=== PATIENT | female | born 1955 | race Caucasian/White ===

== ENCOUNTER 2020-07-29 08:20 | Outpatient (REF) | payer MEDICARE, SELFPAY ==
[2020-07-29 11:18] LABS: MANUAL DIFF FLAG NO
[2020-07-29 11:30] LABS: Basophils Percent Auto 0.4 % (0-2); Eosinophils Absolute Auto 0.1 X10*3/uL (0.0-0.4); Eosinophils Percent Auto 1.9 % (0-4); Hematocrit 45.3 % (37-47); Hemoglobin 14.8 g/dl (12.0-16.0); Imm Gran Abs Auto 0.01 X10*3/uL (0.00-0.03); Imm Gran Pct Auto 0.1 % (0.0-0.4); Lymphocytes Percent Auto 30.3 % (20-40); Mean Corpuscular HGB Conc 32.7 g/dl (31.0-35.0); Mean Corpuscular Hemoglobin 29.8 pg (27.0-33.0); Mean Corpuscular Volume 91.3 fL (80-98); Mean Platelet Volume 10.6 fL (9.4-12.3); Monocytes Absolute Auto 0.5 X10*3/uL (0.1-1.2); Monocytes Percent Auto 7.7 % (2-11); Neutrophils Percent Auto 59.6 % (45-73); Platelet Count 170 X10*3/uL (160-400); Red Blood Count 4.96 X10*6/uL (4.20-5.50); Red Cell Distribution Width 12.7 % (11.0-16.0); White Blood Count 6.7 X10*3/uL (4.8-10.8)
[2020-07-29 12:38] LABS: Thyroid Stimulating Hormone 0.22 mIU/mL (0.32-4.0)
[2020-07-29 12:41] LABS: Alanine Aminotransferase 25 U/L (0-31); Albumin Level 4.5 g/dL (3.5-5.0); Alkaline Phosphatase 69 U/L (39-117); Anion Gap 14 (12-20); Aspartate Amino Transferase 15 U/L (5-31); Bilirubin Total 0.6 mg/dL (0.0-1.0); Blood Urea Nitrogen 19 mg/dL (9-16); Calcium 9.4 mg/dL (8.4-10.2); Carbon Dioxide 29 mmol/L (22-29); Chloride 103 mmol/L (96-108); Cholesterol 169 mg/dL; Estimated Glomerular Filt Rate > 60; Glucose Fasting 88 mg/dL (60-99); HDL Cholesterol 42 mg/dL; LDL Cholesterol Calculated 102 mg/dl; Potassium 4.4 mmol/l (3.3-5.1); Sodium 142 mmol/L (135-145); Total Protein 7.2 g/dL (6.5-8.0); Triglycerides 126 mg/dL
== END 2020-07-29 08:21 | disposition home or self-care (01) ==
LOC: HO.HMGCLDS 08:20
PROVIDERS: PCP Internal Medicine; Visit Provider Internal Medicine
DX: E03.9 Hypothyroidism, unspecified (principal); E78.00 Pure hypercholesterolemia, unspecified; I10 Essential (primary) hypertension
CPT/HCPCS: 36415; 80053; 80061; 84443; 85025

== ENCOUNTER 2021-01-29 14:06 | Outpatient (REF) | payer MEDICARE, SELFPAY ==
[2021-01-29 17:12] LABS: Thyroid Stimulating Hormone 0.03 uIU/mL (0.32-4.0)
== END 2021-01-29 14:07 | disposition home or self-care (01) ==
LOC: HO.HMGCLDS 14:06
PROVIDERS: PCP Internal Medicine; Visit Provider Internal Medicine
DX: E03.9 Hypothyroidism, unspecified (principal)
CPT/HCPCS: 36415; 84443

== ENCOUNTER 2021-02-12 10:22 | Outpatient (REF) | payer MEDICARE, SELFPAY ==
--- NOTE | ~2021-02-12 | XR_ITS ---
EXAMINATION: XR TOES, LEFT CLINICAL INFORMATION: Pain in great toe. COMPARISON: None TECHNIQUE: 3 views of the left toes were obtained. FINDINGS: FIRST TOE: Mild hallux valgus and mild 1st MTP arthritis. Mild 1st IP joint spurring. No acute fracture or dislocation. Bony spurring at the 2nd MTP joint. Probable mild 2nd IP joint arthritis. No acute findings otherwise seen. XR/XR toe LT min 2V IMPRESSION: Mild hallux valgus and 1st MTP joint arthritis. Additional findings as detailed above.
[2021-02-12 12:04] LABS: C Reactive Protein 0.54 mg/dL (< or = 0.50); Cholesterol 163 mg/dL; HDL Cholesterol 36 mg/dL; LDL Cholesterol Calculated 88 mg/dl; Triglycerides 195 mg/dL; Uric Acid 4.9 mg/dL (2.4-5.7)
== END 2021-02-12 10:23 | disposition home or self-care (01) ==
LOC: HO.HMGCX 10:22
PROVIDERS: PCP Internal Medicine; Visit Provider Internal Medicine
DX: Z00.00 Encounter for general adult medical examination without abnormal findings (principal); M79.675 Pain in left toe(s); I10 Essential (primary) hypertension; E78.00 Pure hypercholesterolemia, unspecified; E03.9 Hypothyroidism, unspecified
CPT/HCPCS: 36415; 73660; 80061; 84550; 86140

== ENCOUNTER 2021-06-14 07:24 | Outpatient (REF) | payer MEDICARE, SELFPAY ==
[2021-06-14 11:03] LABS: MANUAL DIFF FLAG NO
[2021-06-14 11:16] LABS: Basophils Percent Auto 0.4 % (0-2); Eosinophils Absolute Auto 0.1 X10*3/uL (0.0-0.4); Eosinophils Percent Auto 1.1 % (0-4); Hematocrit 40.9 % (37-47); Hemoglobin 13.4 g/dl (12.0-16.0); Imm Gran Abs Auto 0.01 X10*3/uL (0.00-0.03); Imm Gran Pct Auto 0.2 % (0.0-0.4); Lymphocytes Absolute Auto 1.4 X10*3/uL (1.2-4.9); Lymphocytes Percent Auto 26.1 % (20-40); Mean Corpuscular HGB Conc 32.8 g/dl (31.0-35.0); Mean Corpuscular Volume 91.7 fL (80-98); Mean Platelet Volume 10.6 fL (9.4-12.3); Monocytes Absolute Auto 0.6 X10*3/uL (0.1-1.2); Monocytes Percent Auto 10.8 % (2-11); Neutrophils Absolute Auto 3.3 X10*3/uL (2.0-8.3); Neutrophils Percent Auto 61.4 % (45-73); Platelet Count 179 X10*3/uL (160-400); Red Blood Count 4.46 X10*6/uL (4.20-5.50); Red Cell Distribution Width 12.7 % (11.0-16.0); White Blood Count 5.4 X10*3/uL (4.8-10.8)
[2021-06-14 11:39] LABS: Alanine Aminotransferase 18 U/L (0-31); Albumin Level 4.3 g/dL (3.5-5.0); Alkaline Phosphatase 60 U/L (39-117); Anion Gap 15 (12-20); Aspartate Amino Transferase 14 U/L (5-31); Bilirubin Total 0.6 mg/dL (0.0-1.0); Blood Urea Nitrogen 16 mg/dL (9-16); Calcium 9.4 mg/dL (8.4-10.2); Carbon Dioxide 27 mmol/L (22-29); Chloride 105 mmol/L (96-108); Cholesterol 151 mg/dL; Estimated Glomerular Filt Rate > 60; Glucose Fasting 88 mg/dL (60-99); HDL Cholesterol 40 mg/dL; LDL Cholesterol Calculated 98 mg/dl; Potassium 4.7 mmol/L (3.3-5.1); Sodium 142 mmol/L (135-145); Total Protein 6.8 g/dL (6.5-8.0); Triglycerides 65 mg/dL
[2021-06-14 11:57] LABS: Erythrocyte Sedimentation Rate 12 MM/HR (0-20)
[2021-06-14 12:00] LABS: Thyroid Stimulating Hormone 0.26 uIU/mL (0.32-4.0); Vitamin D 25-OH Total 38.8 ng/mL (>30)
[2021-06-14 12:21] LABS: Rheumatoid Factor < 15.0 IU/mL (<15.0)
[2021-06-15 09:37] LABS: Lyme Abs Screen <0.90 index
== END 2021-06-14 07:25 | disposition home or self-care (01) ==
LOC: HO.HMGCLDS 07:24
PROVIDERS: PCP Internal Medicine; Visit Provider Internal Medicine
DX: I10 Essential (primary) hypertension (principal); E78.00 Pure hypercholesterolemia, unspecified; E03.9 Hypothyroidism, unspecified; M25.50 Pain in unspecified joint
CPT/HCPCS: 36415; 80053; 80061; 82306; 84443; 85025; 85652; 86140; 86431; 86617; 86618

== ENCOUNTER 2023-12-12 09:56 | Outpatient (REF) | payer MEDICARE, SELFPAY ==
--- NOTE | ~2023-12-12 | XR_ITS ---
EXAMINATION: XR CHEST CLINICAL INFORMATION: Bronchitis COMPARISON: 10/28/2016 TECHNIQUE: 2 views of the chest were obtained. FINDINGS: No significant abnormality is noted involving the heart, lungs, mediastinum, bony thorax or soft tissues. XR/XR chest 2V IMPRESSION: Unremarkable examination.
[2023-12-12 13:20] LABS: MANUAL DIFF FLAG NO
[2023-12-12 13:37] LABS: Basophils Percent Auto 0.6 % (0-2); Eosinophils Absolute Auto 0.1 X10*3/uL (0.0-0.4); Hematocrit 41.9 % (37.0-47.0); Hemoglobin 14.7 g/dl (12.0-16.0); Imm Gran Abs Auto 0.02 X10*3/uL (0.00-0.03); Imm Gran Pct Auto 0.3 % (0.0-0.4); Lymphocytes Absolute Auto 1.8 X10*3/uL (1.2-4.9); Mean Corpuscular HGB Conc 35.1 g/dl (31.0-35.0); Mean Corpuscular Hemoglobin 31.7 pg (27.0-33.0); Mean Corpuscular Volume 90.3 fL (80.0-98.0); Mean Platelet Volume 10.5 fL (9.4-12.3); Monocytes Absolute Auto 0.7 X10*3/uL (0.1-1.2); Neutrophils Absolute Auto 3.9 x10*3/uL (2.0-8.3); Neutrophils Percent Auto 60.1 % (45-73); Platelet Count 311 X10*3/uL (160-400); Red Blood Count 4.64 X10*6/uL (4.20-5.50); Red Cell Distribution Width 12.5 % (11.0-16.0); White Blood Count 6.5 X10*3/uL (4.8-10.8)
[2023-12-12 13:40] LABS: Alanine Aminotransferase 23 U/L (0-31); Albumin Level 4.2 g/dL (3.5-5.0); Alkaline Phosphatase 61 U/L (39-117); Anion Gap 10 (12-20); Aspartate Amino Transferase 18 U/L (5-31); Bilirubin Total 0.4 mg/dL (0.0-1.0); Blood Urea Nitrogen 15 mg/dL (9-16); C Reactive Protein 0.27 mg/dL (< or = 0.50); Calcium 9.8 mg/dL (8.4-10.2); Carbon Dioxide 28 mmol/L (22-29); Chloride 105 mmol/L (96-108); Estimated Glomerular Filt Rate > 60; Glucose Random 85 mg/dL (60-115); Potassium 4.1 mmol/L (3.3-5.1); Sodium 139 mmol/L (135-145); Total Protein 7.1 g/dL (6.5-8.0)
[2023-12-12 14:15] LABS: Erythrocyte Sedimentation Rate 14 MM/HR (0-20)
== END 2023-12-12 09:57 | disposition home or self-care (01) ==
LOC: HO.HMGCX 09:56
PROVIDERS: PCP Internal Medicine; Visit Provider Internal Medicine
DX: J40 Bronchitis, not specified as acute or chronic (principal)
CPT/HCPCS: 36415; 71046; 80053; 85025; 85652; 86140

== ENCOUNTER 2024-03-13 10:53 | Outpatient (REF) | payer MEDICARE, SELFPAY ==
[2024-03-13 14:19] LABS: Free T4 (Free Thyroxine) 0.99 ng/dL (0.71-1.85); Thyroid Stimulating Hormone 2.93 uIU/mL (0.32-4.0); Vitamin D 25-OH Total 43.5 ng/mL (>30)
[2024-03-15 19:04] LABS: Triiodothyronine T3 Free 2.6 pg/mL (2.3-4.2)
== END 2024-03-13 10:54 | disposition home or self-care (01) ==
LOC: HO.HMGCLDS 10:53
PROVIDERS: PCP Internal Medicine; Visit Provider Internal Medicine
DX: M85.88 Other specified disorders of bone density and structure, other site (principal); E03.9 Hypothyroidism, unspecified
CPT/HCPCS: 36415; 82306; 84439; 84443; 84481

== ENCOUNTER 2025-01-21 13:31 | Outpatient (AMB) | payer MEDICARE, SELFPAY ==
--- NOTE | 2025-01-21 13:33 | A.OFFPC_ITS ---
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 Accompanied by: Self / Same As Patient Allergies No Known Allergies Allergy (Verified 01/21/25 13:33) Tobacco use date assessed: 01/21/25 Fall risk assessment: No Falls in past year Last assessed Fall Risk: 01/21/25 Dental Screening Dental Screen Date: 01/21/25 Did you have a dental visit in the last 12 months?: Yes Did you have a dental problem in the last 6 months where you did not have access to dental care?: No Was dental information given to patient?: Patient has dentist [facility] Medical History (Updated 01/21/25 @ 14:18 by Keith Vanegas MD) Osteoarthritis of right shoulder Hypothyroidism Family History (Updated 01/21/25 @ 13:44 by AG Knight) Father Heart problem Mother Heart problem Brother Diabetes Heart problem Social History (Updated 01/21/25 @ 13:44 by AG Knight) Housing: House Alcohol intake: current Alcohol intake frequency: holidays/special occasions only Patient Tobacco Use Status: Never used Tobacco service: No Current occupational status: retired Cognitive needs: No Hearing needs: No Vision needs: Yes (rx glasses) Questionnaire PHQ-9 Over the last 2 weeks, how often have you been bothered by any of the following problems? 1. Little interest or pleasure in doing things: not at all 2. Feeling down, depressed, or hopeless: not at all 3. Trouble falling or staying asleep, or sleeping too much: not at all 4. Feeling tired or having little energy: not at all 5. Poor appetite or overeating: not at all 6. Feeling bad about yourself - or that you are a failure or have let yourself or your family down: not at all 7. Trouble concentrating on things, such as reading the newspaper or watching television: not at all 8. Moving or speaking so slowly that other people could have noticed. Or the opposite - being so fidgety or restless that you have been moving around a lot more than usual: not at all 9. Thoughts that you would be better off or of hurting yourself in some way: not at all Total score: 0 Source: Developed by Drs. Bert Choi, Alejandra Ellis, Nirav Bobby and colleagues, with an educational maksim from [employer]. Thrive Questionnaire Date Thrive assessed: 01/21/25 I am a: Patient What is your living situation today?: I have a steady place to live Within the past 12 months, did the food you bought not last and you didn't have the money to get more?: Never true Within the past 12 months, did you worry whether your food would run out before you got money to buy more?: Never true Do you have trouble paying for medicines?: No Do you have trouble getting transportation to medical appointments?: No Do you have trouble paying your heating and electricity bill?: No Do you have trouble taking care of your child, family member or friend?: No Do you have trouble with day-to-day activities such as bathing, preparing meals, shopping, managing finances, etc.?: No Are you currently unemployed and looking for a job?: No Are you interested in more education?: No Please select the resources that you would like help with: None THRIVE Score: 0 AUDIT C Alcohol Use Questionnaire (AUDIT-C) 1. How often do you have a drink containing alcohol?: Monthly or less 2. How many drinks containing alcohol do you have on a typical day when you are drinking?: 1 or 2 3. How often do you have six or more drinks on one occasion?: Never Total Score: 1 YORDY-7 AMB Questionnaire YORDY-7 Date YORDY - 7 assessed: 01/21/25 Feeling nervous, anxious, or on edge: 0 = Not at all Not being able to stop or control worryin = Not at all Worrying too much about different things: 0 = Not at all Trouble relaxin = Not at all Being so restless that it is hard to sit still: 0 = Not at all Becoming easily annoyed or irritable: 0 = Not at all Feeling afraid as if something awful might happen: 0 = Not at all Total YORDY-7 score (0-4 normal; 5-9 mild; 10-14 moderate; 15-21 severe): 0 Source: Developed by Drs. Bert Choi, Alejandra Ellis, Nirav Bobby and colleagues, with an educational maksim from [employer]. Physical exam (Primary Care) Vital Signs: Last Vital Signs Temp 97.9 F 01/21/25 13:35 Pulse 72 01/21/25 13:35 Resp 14 01/21/25 13:35 BP 138/80 01/21/25 13:35 Pulse Ox 97 01/21/25 13:35 Oxygen Delivery Method Room Air 01/21/25 13:35 BMI result Body Mass Index 27.3 Tobacco/Smoking Status: Tobacco use Status Tobacco use date assessed 01/21/25 01/21/25 13:44 Patient Tobacco Use Status Never used Tobacco 01/21/25 13:44 PHQ-9: PHQ-9 Score PHQ-9: Total score 0 01/21/25 13:44 Thrive Assessment: Date of Thrive Assessment Date Thrive assessed 01/21/25 01/21/25 13:44 Coding Level of Care Code New Pt Level 4 (01263) Complex EM visit Add On G2211 Diagnoses Hypothyroidism E03.9 Osteoarthritis of right shoulder M19.011 Assessment & Plan Assessment & Plan (1) Hypothyroidism: Code(s): E03.9 - Hypothyroidism, unspecified Category: Medical Plan: BW ordered, will call with results of blood work (2) Osteoarthritis of right shoulder: Code(s): M19.011 - Primary osteoarthritis, right shoulder Category: Medical Plan: NSAIDS called in. If sx do not improve, will consider imaging. Plan History of Present Illness The patient is a 69-year-old female presenting with pain management concerns for her right shoulder and left hip. She has experienced persistent right shoulder pain but has opted against treatment interventions thus far. Her left hip pain has also been troubling her recently. Pain severity increases at night, potentially related to muscle relaxation after physical activity. Previous employment involved physical labor, which she may attribute to her musculoskeletal complaints. There are no reports of acute exacerbations or previously attempted treatments prior to this visit, aside from the newly proposed anti-inflammatory regimen. 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 - , as interactions with a spouse are noted. - Planning a trip to [facility]. Review of Systems - Musculoskeletal: Reports pain in right shoulder and left hip, with increased severity at night. Physical Exam General: Cooperative and healthy appearing Nutritional Appearance: Well nourished Orientation/consciousness: Patient oriented x3 Limitations: No limitations Head: Normal to inspection General: Appearance normal, both eyes and all related structures Neck: Normal visual inspection Chest: Normal palpation of entire chest wall Respiratory: Normal respiratory effort Neurology: Patient oriented x3 Results Plan I recommended beginning treatment with meloxicam, an anti-inflammatory, for pain in her shoulder and hip. She is to take it daily over a two-week period and take into account copayment benefits for any further necessary labs at [facility]. Follow-up monitoring of treatment efficacy and any subsequent care needs will be essential. Patient was informed and verbally consented to the use of an ambient scribe for clinic note documentation during this visit. Discussion Notes Patient Instructions - Begin taking meloxicam once daily for two weeks. - Monitor pain levels and report any adverse effects or lack of improvement. - Plan to have any needed lab work done at [facility] to avoid copayments. - Consider scheduling follow-up to evaluate the response to treatment if necessary. - Contact medical services if experiencing any severe side effects or concerns. Orders: Orders Complete Blood Count no Diff Today E03.9 - Hypothyroidism, unspecified Lipid Panel Today E03.9 - Hypothyroidism, unspecified Thyroid Stimulating Hormone Today E03.9 - Hypothyroidism, unspecified UA and rflx microscopic Today E03.9 - Hypothyroidism, unspecified Basic Metabolic Panel Today E03.9 - Hypothyroidism, unspecified Liver Panel Today E03.9 - Hypothyroidism, unspecified Medications: New meloxicam 15 mg PO DAILY 14 tabs 0RF
[2025-01-21 13:35] VITALS: BP 138/80; PULSE 72; RESP 14; TEMP 36.6; O2SAT 97; BMI 27.3
--- OUTSIDE RECORDS SUMMARY | 2025-01-21 16:28 | XMS_ITS | Data Portability ---
Author Organization [facility], [facility] Address [address] [place] [address] Care Team Providers Care Department Of Sociology Chair Name Role Phone KULWANT FELICIANO Primary Care Provider Assessment Encounter Date Assessment Date Assessment LastModified by Organization Details LastModified Time 08/28/2024 08/28/2024 A: Improved ying to overall tx with slight improvement in ROM with less empty end feel and guarding. Updated HEP given with TB. P: Cont POC per pt ying. [email or web address] Not available 08/29/2024 10:23:07 09/02/2024 09/02/2024 A: Pt had significant decrease in overall ying to tx today with constant pain in both shoulders. P: Cont POC per pt ying. [email or web address] Not available 09/03/2024 11:02:43 09/04/2024 09/04/2024 A: Pt cont to struggle with pain in Bi shoulder with ROM and strengthening exs. Pt decided to put hold on PT and follow up with MD for further recommendation of POC. P: Pt D/C today. MD follow up 09/24/24. [email or web address] Not available 09/04/2024 11:19:11 09/24/2024 09/24/2024 Chief Complaint: Bilateral shoulder pain, right greater than left HPI: The patient, a 68-year-old female, presents with bilateral shoulder pain that has been persistent for approximately one year, with significant exacerbation at night. The pain is localized to the sides of the shoulders and occasionally radiates downwards. She reports no recent trauma but has a history of thoracic outlet syndrome surgery on the left side, including first rib resection and nerve transposition. She did well after that surgery. The patient enjoys physical activities such as gardening and lifting heavy objects, which may contribute to her symptoms. She has not tried any medications, therapy, or injections for her shoulder pain. Additionally, she experiences muscle spasms in her back, which she manages with muscle relaxers and a TENS unit. I previously evaluated her on 07/30/2024. I performed bilateral shoulder subacromial steroid injections, which did provide some improvement in symptoms, however, she continues to have pain particularly to the right shoulder. She comes in today for reevaluation. I reviewed previous X-rays ordered, obtained and reviewed at [facility] from July 2024. These images included a Grashey, scapular outlet and axillary views of the bilateral shoulders. No acute fractures or dislocations. Relatively normal glenohumeral joint space with mild joint space narrowing to the left shoulder along with small inferior humeral head osteophyte. Normal acromial humeral distance. Mild acromial clavicular joint arthrosis bilaterally. Type II acromion bilaterally. No os acromiale. Past medical, surgical, family and social history; Medications, Allergies and 12-point review of systems have been reviewed, updated and charted. Physical Examination: Height and weight as noted in chart. Constitutional: Patient pleasant, well appearing and in NAD. Mental status: Patient is alert and oriented to person, place and time. No short-term memory deficits. Psychiatric: Mood and affect are appropriate. Head: Normocephalic and atraumatic. Exterior inspection of the ears and nose was unremarkable. Hearing grossly intact. Eyes: Sclera are not blue. almond cutting machine tender II-XII are grossly intact. Full extraocular motion. Neck: Supple with age-appropriate ROM. No tracheal deviation. No obvious JVD. Respiratory: Non-labored breathing. Symmetric excursion. No audible wheezing or crackles. Skin: No rashes, lesions, wounds to the upper extremities. Normal turgor and coloration. Musculoskeletal: On examination of the bilateral shoulders, there are no effusions, erythema or ecchymosis. Active shoulder elevation 165? ? ? bilaterally. External rotation to 50? ? ? bilaterally. Internal rotation to the thoracolumbar junction. 4+/5 strength on rotator cuff testing. Positive impingement signs of both shoulders. Mild acromioclavicular joint and biceps tenderness. Impression and Plan: 68-year-old female with a greater than one-year history of bilateral shoulder pain and overall history and exam consistent with bilateral shoulder subacromial impingement/bursiti s and probable underlying rotator cuff tear pathology. I did discuss with her the possibility of partial thickness rotator cuff tear pathology, which is very common in her age group. Despite this, she has very reasonable strength on rotator cuff testing. Given the chronicity of her symptoms and failure of conservative treatment including rest, the modification, oral anti-inflammatories and cortisone injection treatment, I am referring her for an MRI of the more symptomatic right shoulder to rule out rotator cuff tear and associated pathology. I stressed the importance of activity modification with avoidance of exacerbating activities including heavy lifting overhead or lifting heavy away from the body. I discussed good lifting mechanics. I also recommended a low-dose oral anti-inflammatory such as ibuprofen [id number] and/or Tylenol as needed. I will plan to see her back in 3 weeks for reevaluation and MRI review. All questions and concerns were addressed. Today's visit involved examining the patient, reviewing the history, reviewing the radiographic studies, counseling the patient regarding treatment options, and the administrative tasks including placing orders, preparing patient information and home handouts and preparing the visit note. This note was [facility] with [facility] recognition nurse transition dictation software. Please excuse any errors that may have been overlooked during review of this note. Sometimes, these errors may affect the content or meaning of a given sentence. Please call for corrections. Not available 09/24/2024 16:37:36 10/24/2024 10/24/2024 Chief Complaint: Bilateral shoulder pain, right greater than left HPI: The patient, a 68-year-old female, presents with bilateral shoulder pain that has been persistent for approximately one year, with significant exacerbation at night. The pain is localized to the sides of the shoulders and occasionally radiates downwards. She reports no recent trauma but has a history of thoracic outlet syndrome surgery on the left side, including first rib resection and nerve transposition. She did well after that surgery. The patient enjoys physical activities such as gardening and lifting heavy objects, which may contribute to her symptoms. She has not tried any medications, therapy, or injections for her shoulder pain. Additionally, she experiences muscle spasms in her back, which she manages with muscle relaxers and a TENS unit. I previously evaluated her on 07/30/2024. I performed bilateral shoulder subacromial steroid injections, which did provide some improvement in symptoms, however, she continues to have pain particularly to the right shoulder. Overall, symptoms are not improved particularly if she keeps her arms posterior body. I did most recently see her on 09/24/2024 and referred her for an MRI of the more symptomatic right shoulder. She comes in today for reevaluation and MRI review. I independently reviewed the outside MRI of the right shoulder dated 10/07/2024 from [facility]. There is partial-thickness intrasubstance tearing of the distal supraspinatus with downsloping impinging acromial spur. No significant acromioclavicular joint arthrosis. Degenerative tearing of the superior labrum noted. Anterior and posterior labrum appear largely intact with degenerative change appreciated. Generalized chondral thinning to the glenohumeral joint. Moderate joint effusion noted. Subscapularis intact. Infraspinatus and teres minor intact. Biceps tendon intact with notable hermann-bicipital fluid within the biceps sheath in conjunction with effusion. I reviewed previous X-rays ordered, obtained and reviewed at [facility] from July 2024. These images included a Grashey, scapular outlet and axillary views of the bilateral shoulders. No acute fractures or dislocations. Relatively normal glenohumeral joint space with mild joint space narrowing to the left shoulder along with small inferior humeral head osteophyte. Normal acromial humeral distance. Mild acromial clavicular joint arthrosis bilaterally. Type II acromion bilaterally. No os acromiale. Past medical, surgical, family and social history; Medications, Allergies and 12-point review of systems have been reviewed, updated and charted. Physical Examination: Height and weight as noted in chart. Constitutional: Patient pleasant, well appearing and in NAD. Mental status: Patient is alert and oriented to person, place and time. No short-term memory deficits. Psychiatric: Mood and affect are appropriate. Head: Normocephalic and atraumatic. Exterior inspection of the ears and nose was unremarkable. Hearing grossly intact. Eyes: Sclera are not blue. almond cutting machine tender II-XII are grossly intact. Full extraocular motion. Neck: Supple with age-appropriate ROM. No tracheal deviation. No obvious JVD. Respiratory: Non-labored breathing. Symmetric excursion. No audible wheezing or crackles. Skin: No rashes, lesions, wounds to the upper extremities. Normal turgor and coloration. Musculoskeletal: On examination of the bilateral shoulders, there are no effusions, erythema or ecchymosis. Active shoulder elevation 165? ? ? bilaterally. External rotation to 50? ? ? bilaterally. Internal rotation to the thoracolumbar junction. 4+/5 strength on rotator cuff testing. Positive impingement signs of both shoulders. Mild acromioclavicular joint and biceps tenderness. Impression and Plan: 68-year-old female with a greater than one-year history of bilateral shoulder pain and overall history and exam consistent with bilateral shoulder subacromial impingement/bursiti s and MRI demonstrating partial-thickness intrasubstance tearing of the distal supraspinatus with no full thickness tear of the right shoulder with impinging acromial spurring. I did discuss with her that partial thickness rotator cuff tear pathology is very common in her age group. Despite this, she has very reasonable strength on rotator cuff testing. She has attempted conservative treatment including rest, activity modification, oral anti-inflammatories and cortisone injection treatment. I stressed the importance of activity modification with avoidance of exacerbating activities including heavy lifting overhead or lifting heavy away from the body. I discussed good lifting mechanics. I also recommended a low-dose oral anti-inflammatory such as ibuprofen [id number] and/or Tylenol as needed. We also discussed options both operative and nonoperative. Currently, her symptoms are manageable and she would like to avoid surgery. Therefore, we will continue conservative treatment at this time and focus on good lifting mechanics. She has noted improvement in overall symptoms with glucosamine/chondro itin sulfate supplementation and I also recommended fish oil, vitamin C and turmeric. I can see her back as needed. All questions and concerns were addressed. Today's visit involved examining the patient, reviewing the history, reviewing the radiographic studies, counseling the patient regarding treatment options, and the administrative tasks including placing orders, preparing patient information and home handouts and preparing the visit note. This note was generated with [facility] speech recognition nurse transition dictation software. Please excuse any errors that may have been overlooked during review of this note. Sometimes, these errors may affect the content or meaning of a given sentence. Please call for corrections. [email or web address] Not available 10/24/2024 09:27:59 Plan of Treatment Reminders Order Date Submit Date Provider Last Modified By Organization Details Last Modified Time Details Appointments None recorded. Lab None recorded. Referral None recorded. Procedures None recorded. Surgeries None recorded. Imaging MRI, shoulder, w/o contrast - ? rct 2023 024 JOSE J [facility], [address], [place], [address], 16:57:42 Medication Orders None recorded. Patient TargetsNo targets recorded. Patient InstructionsNo instructions recorded. Reason for Referral None Reported. Results Created Date Observation Date Name Description Value Unit Range Abnormal Flag Note LastModifiedBy Organization Detail LastModifiedTime 07/30/2007/30/2024 XR, shoalex marta, 2 or more view http:/ [email or web address] ?Encry pted=s hAaTro YD8dLq bEUv6g %2BXZw aYqtaq 0bqfl% 2Fg9IQ a4ajBk vP9nXo QUaueC m3YtLR FvZlgJ JJ8mAn HZtai3 6e6554 AC0Kqa 3uBVaO kKiQtr MwF INTERFACE [facility] [address], [place], [address], 07/30/2024 08:32:13 07/30/20 24 07/30/2024 XR, steve marta, 2 or more view http:/ [email or web address] ?Encry pted=s hAaTro YD8dLq bEUv6g %2BXZw aYqtaq 0bqfl% 2Fg9IQ a4ajBk vP9nXo QUaueC m3YtLR FvZl JJ8mAn HZtai3 4e8943 AC0Kqa 3uBVaO kKiQtr MwF INTERFACE [facility] [address] [facility] [address], [place], [address], 07/30/2024 08:32:15 10/07/20 24 10/07/2024 MRI, steve marta, w/o contr ast No observ ation record ed. [email or web address] [facility] [address], [place], [address], 10/08/2024 08:05:50 Result Notes None recorded. Procedures Surgical History Date Name Laterality Status Provider Name and Address Organization Details Recorded Time 4 75216 Therapeutic Exercise (1:1) completed Ashley Chiang PTA [address], [place], [address], [facility] 09/04/2024 08:04:34 4 90843: Hot or Cold Pack completed Ashley Chiang PTA [address], [place], [address], [facility] 09/04/2024 11:19:43 4 41171: Manual therapy completed Ashley Chiang PTA [address], [place], [address], [facility] 09/04/2024 08:04:34 4 96413 Therapeutic Exercise (1:1) completed Ashley Chiang PTA [address], [place], [address], [facility] 09/03/2024 11:01:32 4 51855: Hot or Cold Pack completed Ashley Chiang PTA [address], [place], [address], [facility] 09/02/2024 07:54:12 4 79290: Manual therapy completed Ashley Chiang PTA [address], [place], [address], [facility] 09/02/2024 07:54:12 4 36600 Therapeutic Exercise (1:1) completed Ashley Chiang PTA [address], [place], [address], [facility] 08/29/2024 10:23:57 4 45686: Hot or Cold Pack completed Ashley Chiang, CATALYTIC CONVERTER OPERATOR [address], [place], [address], [facility] 08/29/2024 10:23:50 4 93825: Manual therapy completed Ashley Chiang, CATALYTIC CONVERTER OPERATOR [address], [place], [address], [facility] 08/28/2024 13:01:52 4 76098 Therapeutic Exercise (1:1) completed Ashley Chiang, CATALYTIC CONVERTER OPERATOR [address], [place], [address], [facility] 08/26/2024 07:53:08 4 66784: Hot or Cold Pack completed Ashley Chiang, CATALYTIC CONVERTER OPERATOR [address], [place], [address], [facility] 08/26/2024 07:53:08 4 26385: Manual therapy completed Ashley Chiang, CATALYTIC CONVERTER OPERATOR [address], [place], [address], [facility] 08/26/2024 07:53:08 4 48968 Therapeutic Exercise (1:1) completed Ashley Chiang, CATALYTIC CONVERTER OPERATOR [address], [place], [address], [facility] 08/23/2024 07:53:52 4 26372: Hot or Cold Pack completed Ashley Chiang, CATALYTIC CONVERTER OPERATOR [address], [place], [address], [facility] 08/23/2024 07:53:51 4 81226: Manual therapy completed Ashley Chiang, CATALYTIC CONVERTER OPERATOR [address], [place], [address], [facility] 08/23/2024 07:53:52 4 06635 Therapeutic Exercise (1:1) completed Pratik Mota, PT [address], [place], [address], [facility] 08/23/2024 08:00:34 4 47188: Hot or Cold Pack completed Pratik Mota, PT [address], [place], [address], [facility] 08/23/2024 07:58:08 4 91419: Manual therapy completed Pratik Mota, PT [address], [place], [address], [facility] 08/21/2024 10:30:49 4 30994 Therapeutic Exercise (1:1) completed Ashley Chiang, CATALYTIC CONVERTER OPERATOR [address] [facility], [place], [address], [facility] 08/16/2024 13:19:52 4 53143: Hot or Cold Pack completed Ashley Chiang, CATALYTIC CONVERTER OPERATOR [address] [facility], [place], [address], [facility] 08/16/2024 13:19:43 4 59688: Manual therapy completed Ashley Chiang, CATALYTIC CONVERTER OPERATOR [address] [facility], [place], [address], [facility] 08/16/2024 13:19:59 4 63328: Low complexity PT Eval completed Pratik Mota, PT [address], [place], [address], [facility] 08/16/2024 00:12:33 4 Sports Shoulder Bilateral completed Joseph Marquez MD [address] [facility], [place], [address], [facility] 07/30/2024 18:25:00 Imaging Results Imaging Date Name Status LastModified by Organiz ation Details LastModified Time 07/30/2024 XR, shoulder, 2 or more view completed INTERFACE [facility] [address], [place], [address], 07/30/2024 08:32:13 07/30/2024 XR, shoulder, 2 or more view completed INTERFACE [facility] [address], [place], [address], 07/30/2024 08:32:15 10/07/2024 MRI, shoulder, w/o contrast completed [email or web address] [facility] [address], [place], [address], 10/08/2024 08:05:50 Procedure Notes None recorded. Medical Equipment None Reported. Allergies No known drug allergies Medications Name Sig Start Date Stop Date Status Note LastModified by Organization Details LastModified Time atorvastatin 10 mg tablet TAKE 1 TABLET BY MOUTH EVERY DAY FOR 90 DAYS active Not Available Not Available No t Available azithromycin 250 mg tablet TAKE 2 TABLETS BY MOUTH TODAY, THEN TAKE 1 TABLET DAILY FOR 4 DAYS DIRECTED active Not Available Not Available No t Available levothyroxine 125 mcg tablet TAKE 1 TABLET IN THE MORNING ON AN EMPTY STOMACH, 6 DAYS A WEEK ORALLY ONCE A DAY 90 DAYS active Not Available Not Available No t Available lisinopril 10 mg tablet TAKE 1 TABLET BY MOUTH EVERY DAY FOR 90 DAYS active Not Available Not Available No t Available albuterol sulfate HFA 90 mcg/actuation aerosol inhaler INHALE 2 PUFFS INTO THE LUNGS EVERY 6 HOURS NEEDED FOR 30 DAYS active Not Available Not Available No t Available amoxicillin 875 mg-potassium clavulanate 125 mg tablet TAKE 1 TABLET BY MOUTH TWICE A DAY WITH FOOD FOR 7 DAYS active Not Available Not Available No t Available Vitals Date Recorded Body height Body mass index (BMI) Body weight Provider Name and Address Organization Details Last Updated DateTime 09/24/2024 162.56 cm 26.4 kg/m2 11439.22 g TY HEIN [facility] 09/24/2024 16:13:23 Date Recorded Body height Body mass index (BMI) Body weight Provider Name and Address Organization Details Last Updated DateTime 10/24/2024 162.56 cm 26.4 kg/m2 48435.22 g TY HEIN [facility] 10/24/2024 08:56:15 Social History None recorded. Functional Status None recorded. Mental Status None recorded. Family History Nothing Reported. Medical History No medical history recorded. Gynecological HistoryNo gynecological history recorded. Obstetrics History GPAL:G 0 P 0 0 0 0 Past Encounters Encounter ID Performer Location Encounter Start Date Encounter Closed Date Diagnosis/Indication Diagnosis SNOMED-CT Code Diagnosis ICD10 Code Diagnosis Note [id number] Joseph Marquez MD [facility] 2nd floor [address] [facility] [place] [address] 07/30/2024 08:10:04 08/22/2024 11:41:46 Bilateral shoulder joint pain 5580461777 4381753 M25.511 M25.512 Bilateral impingement syndrome of shoulders 3905172312 2777571 M75.41 M75.42 [id number] Pratik Mota, PT [facility] [address] [place] [address] 08/12/2024 09:58:45 08/12/2024 11:26:34 Impingement syndrome of right shoulder region 1741577305 87476 M75.41 Impingemen t syndrome of left shoulder region 1735081681 52270 M75.42 [id number] Pratik Mota, PT [facility] [address] [place] [address] 08/16/2024 09:14:44 08/16/2024 10:57:31 Impingement syndrome of right shoulder region 8865448935 28248 M75.41 Impingemen t syndrome of left shoulder region 3986079852 92335 M75.42 [id number] Pratik Mota, PT [facility] [address] [place] [address] 08/21/2024 10:15:51 08/21/2024 11:15:33 Impingement syndrome of right shoulder region 2532613206 94605 M75.41 Impingemen t syndrome of left shoulder region 9335392711 81355 M75.42 [id number] Pratik Mota, PT [facility] [address] [place] [address] 08/23/2024 09:15:42 08/23/2024 10:15:03 Impingement syndrome of right shoulder region 4064475920 22254 M75.41 Impingemen t syndrome of left shoulder region 0691543676 99001 M75.42 [id number] Pratik Drivero, PT [facility] [address] [place] [address] 08/26/2024 10:16:20 08/26/2024 11:46:49 Impingement syndrome of right shoulder region 3123055844 82236 M75.41 Impingemen t syndrome of left shoulder region 0087286313 28589 M75.42 [id number] Pratik Mota, PT [facility] [address] [place] [address] 08/28/2024 12:48:18 08/28/2024 14:20:47 Impingement syndrome of right shoulder region 2302337844 29876 M75.41 Impingemen t syndrome of left shoulder region 4239178292 49683 M75.42 [id number] Pratik Mota, PT [facility] [address] [place] [address] 09/02/2024 10:33:36 09/02/2024 12:07:42 Impingement syndrome of right shoulder region 2033103073 16520 M75.41 Impingemen t syndrome of left shoulder region 2301303255 12238 M75.42 [id number] Pratik Mota, PT [facility] [address] [place] [address] 09/04/2024 10:13:23 09/04/2024 11:22:30 Impingement syndrome of right shoulder region 6888804427 29471 M75.41 Impingemen t syndrome of left shoulder region 5951170679 78452 M75.42 [id number] MD [facility] [address] floor [address] [place] [address] 09/24/2024 15:30:13 10/18/2024 11:47:17 Pain of right shoulder joint 7637122334 9098956 M25.511 Impingemen t syndrome of right shoulder region 3880094269 92223 M75.41 [id number] MD MARCE[facility] [address] [place] [address] 10/24/2024 08:45:02 11/04/2024 13:51:01 Impingement syndrome of right shoulder region 3199833444 89394 M75.41 Health Concerns Section Related Observation LastModified by Organization Detai ls LastModified Time None Recorded Concern Status LastModified by Organization Details LastModified Time None Recorded Advance Directives Directive None Recorded Payers Encounter Date Sequence Insurance Name Policy Number Policy Cherry Covered Member ID Cherry Member ID Guarantor Name 08/28/2024 1 [employer] MEDICARE ADVANTAGE PLAN (MEDICARE REPLACEMENT HMO) [id number] 2 Tabitha Grygiel [id number] Tabitha Grygiel 09/02/2024 1 [facility] MEDICARE ADVANTAGE PLAN (MEDICARE REPLACEMENT HMO) [id number] 2 Tabitha Grygiel [id number] Tabitha Grygiel 09/04/2024 1 [facility] MEDICARE ADVANTAGE PLAN (MEDICARE REPLACEMENT HMO) [id number] 2 Tabitha Grygiel [id number] Tabitha Grygiel 09/24/2024 1 [facility] MEDICARE ADVANTAGE PLAN (MEDICARE REPLACEMENT HMO) [id number] 2 Tabitha Grygiel [id number] Tabitha Grygiel 10/24/2024 1 [facility] MEDICARE ADVANTAGE PLAN (MEDICARE REPLACEMENT HMO) [id number] 2 Tabitha Grygiel [id number] Tabitha Grygiel Notes Date Note Type Note Provider Name and Address Organization Details Recorded Time 08/28/2024 text/html Pt states she is feeling less pain during the day with her shoulder though tries not to overdo it. Still pain and discomfort at night though. Pt states she believes PT is starting to help and would like to cont PT before seeing MD again. Ashley Chiang, CATALYTIC CONVERTER OPERATOR [address], [place], [address], [facility] 08/29/2024 10:24:20 09/02/2024 text/html Pt states today is a bad day- now feels PT is not helping- did not do anything over the weekend expect some of her HEP. States the L shoulder is beginning to increase in pain. Ashley Chiang, CATALYTIC CONVERTER OPERATOR [address], [place], [address], [facility] 09/03/2024 11:03:31 09/04/2024 text/html Pt states her shoulder is the same and seeing not much improvements. Would like today to be her last PT session and follow up with MD in September for further recommendation of POC. Ashley Chiang, CATALYTIC CONVERTER OPERATOR [address], [place], [address], [facility] 09/04/2024 11:20:11 OBGyn Episode No OBEpisode recorded.
== END 2025-01-21 14:19 | disposition home or self-care (01) ==
LOC: HO.HMCSH 13:31
PROVIDERS: PCP Internal Medicine; Visit Provider Internal Medicine
DX: E03.9 Hypothyroidism, unspecified (principal); M19.011 Primary osteoarthritis, right shoulder

== ENCOUNTER → 2025-01-21 13:31 | Outpatient (BNVA) | payer MEDICARE, SELFPAY | PROVIDERS: PCP Internal Medicine; Visit Provider Internal Medicine | DX: E03.9 Hypothyroidism, unspecified (principal); M19.011 Primary osteoarthritis, right shoulder | CPT/HCPCS: 96127; 99202 ==

== ENCOUNTER 2025-04-15 08:17 | Outpatient (REF) | payer MEDICARE, SELFPAY ==
--- OUTSIDE RECORDS SUMMARY | 2025-04-15 08:21 | XMS_ITS | Data Portability ---
Author Organization [place] [facility] [place] Address [address] [place] [address] Assessment Encounter Date Assessment Date Assessment LastModified by Organization Details LastModified Time 04/04/2025 04/04/2025 HPI : Thank you for the pleasure of requesting a consultation on this patient. Patient comes in complaining of left hip pain. She has been dealing with the pain for 1 year. This patient is experiencing left hip pain for a period lasting greater than the last three months, which is severe (VAS score greater than or equal to 6 on a 0-10 scale) in intensity and the restriction of function (appropriate for a patient of this age) are intolerable. The pain substantially limits activities of daily living. In particular, walking tolerance and ability to stair climb is reduced. Conservative management such as non-steroidal anti-inflammatory medications available by prescription, physician directed therapy, ice and/or heat and activity modification have been minimally effective or deemed insufficient by the patient for a period lasting greater than 3-6 months in duration. Assistive devices and external support were not deemed by the patient to be helpful in improving their function. The patient is unable to tolerate further physical therapy at this time. Review of systems is negative for rapidly progressive neurological disorder, chest pain, shortness of breath, fevers, chills, or any signs of active or persistent local or systemic infection. Physical Exam : Patient is well nourished, well-developed, in no acute distress, with appropriate mood and affect. The patient is oriented to time, place, and person. Respirations are even and unlabored. Gait evaluation reveals a limp. There is no inguinal adenopathy. Examination of the contralateral hip shows normal range of motion, strength, no tenderness, and intact skin. The affected limb is well-perfused, shows a grossly normal motor and sensory examination. Examination of the hip shows no skin lesions. Hip motion is reduced and causes pain. FADIR is positive and SEE is positive. Stinchfield test is positive. Leg lengths are approximately left less than right by 5 mm. Both hips are stable and muscle strength is normal. Pedal pulses are palpable. Assessment/Plan : The patient is an appropriate candidate for consideration of left total hip replacement. An extensive discussion was conducted of the natural history of the disease and the variety of surgical and non-surgical treatment options available to the patient. A risk/benefit analysis was discussed with the patient reviewing the advantages and disadvantages of surgical intervention at this time. A full explanation was given of the nature and the purpose of the procedure and anesthesia, its benefits, possible alternative methods of diagnosis or treatment, the risks involved, the possibility of complications, the foreseeable consequences of the procedure and the possible results of the non-treatment. No guarantee or assurance was made as to the results that may be obtained. Specifically, the risks were identified to include, but are not limited to the following: Infection, phlebitis, pulmonary embolism, , paralysis, dislocation, pain, stiffness, instability, limp, weakness, breakage, leg-length inequality, uncontrolled bleeding, nerve injury, blood vessel injury, pressure sores, anesthetic risks, delayed healing of wound and bone, and wear and loosening. Additional risks of robotic hip replacement were discussed (if used) including but not limited to pin site infection, draining, longer incision, longer OR time, and fracture near the pin sites. Further discussion was undertaken with the patient about the details of surgical preparation, treatment, and postoperative rehabilitation including medical clearance, autotransfusion, the hospital course, and the postoperative rehabilitation involved. As a part of routine preoperative counseling, if the patient is a smoker, the patient recognizes the increased risk of complications in patients who utilize tobacco products. The patient has also been counseled regarding the elevated risk of surgical complications in patients with an elevated BMI. The patient demonstrates understanding of the increased risk in such patients. The patient was encouraged to participate in physical activity and diet modification under the direction of their primary care physician. We will plan on proceeding with left total hip arthroplasty using the Sarina hip replacement system. However, it is possible during the preoperative planning process or due to intraoperative findings that a different implant system may be utilized in order to optimize the patient's outcome. We had a discussion regarding implant and bearing options. We had a detailed discussion of the advantages and limitations of the specific implant designs, materials and bearing surfaces. All questions were answered to the patient's satisfaction, and the patient was asked to call the office with any further concerns. All in all, I feel that this patient is a good candidate for surgical reconstruction. An in-depth discussion of the risks and benefits of surgery as noted above were had with patient, including any reasonable alternatives and the risks and benefits of the alternatives. The patient is also aware that questions can be asked at any time before the surgical date to me or my team. Plan for left total hip replacement. PCM Services Statement: Principal Care Management (PCM) services were recommended to this patient with a diagnosis of osteoarthritis who has failed conservative management and is indicated for, as well as undergone shared decision-making to undergo a total joint arthroplasty procedure. PCM services provided to the patient include but not limited to structured recording of patient health information within our electronic medical record system, 08/05 access and continuity of care to qualified practitioners and/or clinical staff, comprehensive care management and planning to optimize pre-surgical needs, choice of an appropriate surgical facility, preoperative patient education, and coordination of patient-specific hermann-operative needs. This will be actively managed by the clinical staff with physician supervision throughout enrollment in the program. The clinical staff will help manage care transitions as well as coordinate home and community-based care as it pertains to the patient's needs. The patient expresses understanding and awareness of PCM services, including but not limited to potential cost- sharing responsibilities; only one practitioner can furnish and bill for PCM services during a calendar month, and the patient can stop these services at any time. The patient understands and has verbally consented to accept PCM services and has been provided a copy of a written explanation of this service today. [email or web address] Not available 04/04/2025 13:02:22 Plan of Treatment Reminders Order Date Submit Date Provider Last Modified By Organization Details Last Modified Time Details Appointments [id number] TIME TBD by Facility 2024 03:00P Zain Hubbard MD Not available Not available Not available POST-OP 2024 08:45A Zain JEFFERSON PA-C Not available Not available Not available Lab None recorded. Referral None recorded. Procedures None recorded. Surgeries total hip arthropla sty (SURG) 2024 025 [facility] [place] [facility] [address] [facility], [place], [address], 04/10/2025 12:30:06 Imaging XR, hip, unilatera l, 2 or 3 view 2024 025 [email or web address], [address], [place], [address], 04/04/2025 10:55:07 Medication Orders meloxicam 15 mg tablet 2024 025 [id number], [address] , [place], [address], 04/04/2025 08:45:34 Patient TargetsNo targets recorded. Patient InstructionsNo instructions recorded. Reason for Referral None Reported. Problems Name Problem SNOMED Code Status Onset Date Resolution Date Notes Provider Name and Address Organization Details Recorded Time Osteoarthri tis of left hip joint 9207148316399 08 Active 2024 Alvin Hubbard MD [address] [facility], [facility] [place], [address], [place] [facility], P 5 08:44:28 Arthritis of hip 70059257 Active 2024 Alvin Hubbard MD [address] [facility],[address], [place], [address], [place] [facility], P 5 08:44:36 Problem Notes None recorded. Medical Equipment None Reported. Medications Name Sig Start Date Stop Date Status Note LastModified by Organization Details LastModified Time atorvastatin 10 mg tablet TAKE 1 TABLET BY MOUTH EVERY DAY active Not Available Not Available No t Available meloxicam 15 mg tablet TAKE 1 TABLET EVERY DAY BY ORAL ROUTE NEEDED. active Not Available Not Available No t Available lisinopril 20 mg tablet TAKE 1/2 TABLET (10MG) ONCE DAILY active Not Available Not Available No t [...] No t Available Vitals Date Recorded Body weight Provider Name an d Address Organization Details Last Updated DateTime 04/04/[address] [place] [facility] 04/04/2025 08:26:12 Social History None recorded. Functional Status None recorded. Mental Status None recorded. Family History Nothing Reported. Medical History No medical history recorded. Gynecological HistoryNo gynecological history recorded. Obstetrics History GPAL:G 0 P 0 0 0 0 Past Encounters Encounter ID Performer Location Encounter Start Date Encounter Closed Date Diagnosis/Indication Diagnosis SNOMED-CT Code Diagnosis ICD10 Code Diagnosis Note [id number] Alvin Hubbard MD [facility] [address] [facility] [address] [place] [address] 04/04/2025 08:12:11 04/04/2025 08:52:24 Pain of hip region 29622933 M25.552 Osteoarthr itis of left hip joint 3304779418 30095 M16.12 Arthritis of hip 2552505 6 M13.859 Health Concerns Section Related Observation LastModified by Organization Detai ls LastModified Time None Recorded Concern Status LastModified by Organization Details LastModified Time None Recorded Advance Directives Directive None Recorded Payers Insurance Date Sequence Insurance Name Policy Number Policy Cherry Covered Member ID Cherry Member ID Guarantor Name 03/12/2025 1 [facility] MEDICARE ADVANTAGE PLAN (MEDICARE REPLACEMENT HMO) [id number] 2 Tabitha Mesa [id number] Tabitha Mesa OBGyn Episode No OBEpisode recorded.
--- OUTSIDE RECORDS SUMMARY | 2025-04-15 08:21 | XMS_ITS | Encounter Summary ---
Author Organization [facility] Address [address] [place] [address] Care Team Providers Care Community Health Consultant Name Role Phone Keith Vanegas MD Primary Care Provider [phone] Encounter Details Date Type Department Care Team (Late st Contact Info) Description 04/11/2025 Telephone [facility] Pre-Admission Testing [address] [place] [address] Beata Mcdaniel RN Social History Tobacco Use Types Packs/Day Years Used Date Smoking Tobacco: Never Smokeless Tobacco: Never Alcohol Use Standard Drinks/Week Comments Not Currently 0 (1 standard drink = 0.6 oz pur e alcohol) rare Comments No Sex and Gender Information Value Date Recorded Sex Assigned at Female 04/14/2025 8:28 AM EDT Legal Sex Female 10:56 AM EDT Gender Identity Not on file Sexual Orientation Not on file documented as of this encounter Progress Notes * Beata Mcdaniel RN - 04/11/2025 8:52 AM EDT Left Voice Message to patient to call nurse navigator for pre screening call. Cell and home. documented in this encounter Plan of Treatment Upcoming Encounters Date Type Department Care Team (Latest Contact Info) Description 04/21/2025 9:00 AM EDT Hospital Encounter [facility] OR [address] [place] [address] Alvin Hubbard MD [address] [place] [id number] 04/21/2025 9:00 AM EDT - 04/21/2025 10:30 AM EDT Surgery [facility] OR [address] [place] [address] Alvin Hubbard MD [address] [facility] [address] [place] [address] ARTHROPLASTY HIP ROBOT [[id number] (CPT )] Scheduled Procedures Name Priority Associated Diagnoses Date/Ti wy ARTHROPLASTY HIP ROBOT Unilateral primary osteoarthritis, left hip 04/21/2025 9:00 AM EDT documented as of this encounter Visit Diagnoses Not on filedocumented in this encounter Care Teams Community Health Consultant Relationship Specialty Start Date End Date Keith Vanegas MD [place] [address] [place] [address] PCP - General Internal Medicine 04/11/25 documented as of this encounter
[2025-04-15 10:18] LABS: Hematocrit 42.8 % (37.0-47.0); Hemoglobin 14.0 g/dl (12.0-16.0); Mean Corpuscular HGB Conc 32.7 g/dl (31.0-35.0); Mean Corpuscular Hemoglobin 29.9 pg (27.0-33.0); Mean Corpuscular Volume 91.3 fL (80.0-98.0); NRBC Abs Auto 0.000 X10*3/uL (0.0-0.012); NRBC Pct Auto 0.0 /100WBC (0.0-0.2); Platelet Count 233 X10*3/uL (160-400); Red Blood Count 4.69 X10*6/uL (4.20-5.50); White Blood Count 5.2 X10*3/uL (4.8-10.8)
[2025-04-15 10:20] LABS: Appearance Urine Clear; Glucose Urine UA Negative (Negative); PH 6.5 (5.0-9.0); Specific Gravity - Urine 1.015 (1.005-1.025)
[2025-04-15 10:43] LABS: Alanine Aminotransferase 21 U/L (0-31); Albumin Level 4.4 g/dL (3.5-5.0); Alkaline Phosphatase 64 U/L (39-117); Anion Gap 12 (12-20); Aspartate Amino Transferase 18 U/L (5-31); Blood Urea Nitrogen 14 mg/dL (9-16); Calcium 9.2 mg/dL (8.4-10.2); Carbon Dioxide 28 mmol/L (22-29); Chloride 105 mmol/L (96-108); Cholesterol 182 mg/dL (<200); Estimated Glomerular Filt Rate > 60; HDL Cholesterol 45 mg/dL (>40); Potassium 4.1 mmol/L (3.3-5.1); Sodium 141 mmol/L (135-145); Total Protein 6.9 g/dL (6.5-8.0); Triglycerides 118 mg/dL (<150)
[2025-04-15 11:01] LABS: Thyroid Stimulating Hormone 3.17 uIU/mL (0.32-4.0)
== END 2025-04-15 08:18 | disposition home or self-care (01) ==
LOC: HO.HMGCLDS 08:17
PROVIDERS: PCP Internal Medicine; Visit Provider Internal Medicine
DX: Z01.818 Encounter for other preprocedural examination (principal); I10 Essential (primary) hypertension; E03.9 Hypothyroidism, unspecified; M16.12 Unilateral primary osteoarthritis, left hip; Z79.899 Other long term (current) drug therapy
CPT/HCPCS: 36415; 80048; 80061; 80076; 81003; 84443; 85027; 96127; 99212

== ENCOUNTER 2025-04-15 10:33 | Outpatient (AMB) | payer MEDICARE, SELFPAY ==
[2025-04-15 10:52] VITALS: BP 171/71; PULSE 62; RESP 14; TEMP 36.4; O2SAT 96; BMI 27.3
--- NOTE | 2025-04-15 10:52 | MHC.PC.OV ---
Vital Signs 04/15/25 10:52 Height 5 ft 4 in Weight 159 lb BMI 27.3 BP 171/71 H Respiration 14 Pulse 62 Pulse Source Pulse Oximeter Temp 97.6 F Temp Source Temporal Artery Scan Pulse Oximetry (%) 96 Oxygen Delivery Method Room Air Intake Visit Reasons: Surgery, left hip Medical Sales Representative Required: No Accompanied by: Self / Same As Patient Allergies No Known Allergies Allergy (Verified 04/15/25 10:53) Tobacco use date assessed: 04/15/25 Fall risk assessment: No Falls in past year Last assessed Fall Risk: 04/15/25 Dental Screening Dental Screen Date: 01/21/25 HPI Surgery, left hip HPI Details 69-year-old female presents to the office requesting a preop clearance. She is scheduled for left hip replacement in the next week. The procedure is under general anesthesia. Patient has been having increasing intensity in the left hip and medical management has failed prompting the surgery. History of hypertension for which she takes lisinopril 10 mg a day. Reports no symptoms of headache, blurred vision, nausea or vomiting [facility] Medical History Essential hypertension Osteoarthritis of left hip Osteoarthritis of right shoulder Hypothyroidism Family History Father Heart problem Mother Heart problem Brother Diabetes Heart problem Social History Housing: House Alcohol intake: current Alcohol intake frequency: holidays/special occasions only Patient Tobacco Use Status: Never used Tobacco service: No Current occupational status: retired Cognitive needs: No Hearing needs: No Vision needs: Yes (rx glasses) Questionnaire PHQ-9 Over the last 2 weeks, how often have you been bothered by any of the following problems? 1. Little interest or pleasure in doing things: not at all 2. Feeling down, depressed, or hopeless: not at all 3. Trouble falling or staying asleep, or sleeping too much: not at all 4. Feeling tired or having little energy: not at all 5. Poor appetite or overeating: not at all 6. Feeling bad about yourself - or that you are a failure or have let yourself or your family down: not at all 7. Trouble concentrating on things, such as reading the newspaper or watching television: not at all 8. Moving or speaking so slowly that other people could have noticed. Or the opposite - being so fidgety or restless that you have been moving around a lot more than usual: not at all 9. Thoughts that you would be better off or of hurting yourself in some way: not at all Total score: 0 Source: Developed by Drs. Bert Choi, Alejandra Ellis, Nirav Bobby and colleagues, with an educational maksim from [employer]. Thrive Questionnaire Date Thrive assessed: 01/21/25 I am a: Patient What is your living situation today?: I have a steady place to live Within the past 12 months, did the food you bought not last and you didn't have the money to get more?: Never true Within the past 12 months, did you worry whether your food would run out before you got money to buy more?: Never true Do you have trouble paying for medicines?: No Do you have trouble getting transportation to medical appointments?: No Do you have trouble paying your heating and electricity bill?: No Do you have trouble taking care of your child, family member or friend?: No Do you have trouble with day-to-day activities such as bathing, preparing meals, shopping, managing finances, etc.?: No Are you currently unemployed and looking for a job?: No Are you interested in more education?: No Please select the resources that you would like help with: None THRIVE Score: 0 AUDIT C Alcohol Use Questionnaire (AUDIT-C) 1. How often do you have a drink containing alcohol?: Monthly or less 2. How many drinks containing alcohol do you have on a typical day when you are drinking?: 1 or 2 3. How often do you have six or more drinks on one occasion?: Never Total Score: 1 YORDY-7 AMB Questionnaire YORDY-7 Date YORDY - 7 assessed: 01/21/25 Feeling nervous, anxious, or on edge: 0 = Not at all Not being able to stop or control worryin = Not at all Worrying too much about different things: 0 = Not at all Trouble relaxin = Not at all Being so restless that it is hard to sit still: 0 = Not at all Becoming easily annoyed or irritable: 0 = Not at all Feeling afraid as if something awful might happen: 0 = Not at all Total YORDY-7 score (0-4 normal; 5-9 mild; 10-14 moderate; 15-21 severe): 0 Source: Developed by Drs. Bert Choi, Alejandra Ellis, Nirav Bobby and colleagues, with an educational maksim from [employer]. Physical exam (Primary Care) Vital Signs: Last Vital Signs Temp 97.6 F 04/15/25 10:52 Pulse 62 04/15/25 10:52 Resp 14 04/15/25 10:52 BP 171/71 H 04/15/25 10:52 Pulse Ox 96 04/15/25 10:52 Oxygen Delivery Method Room Air 04/15/25 10:52 BMI result Body Mass Index 27.3 Tobacco/Smoking Status: Tobacco use Status Tobacco use date assessed 04/15/25 04/15/25 10:54 Patient Tobacco Use Status Never used Tobacco 04/15/25 10:54 PHQ-9: PHQ-9 Score PHQ-9: Total score 0 04/15/25 10:54 Thrive Assessment: Date of Thrive Assessment Date Thrive assessed 01/21/25 04/15/25 10:54 Coding Level of Care Code Est Pt Level 4 (75170) Complex EM visit Add On G2211 Diagnoses Essential hypertension I10 Osteoarthritis of left hip M16.12 Assessment & Plan Assessment & Plan (1) Essential hypertension: Code(s): I10 - Essential (primary) hypertension Category: Medical Plan: Elevated BP. Lisinopril dosage increased. HCTZ added to the regimen (2) Osteoarthritis of left hip: Code(s): M16.12 - Unilateral primary osteoarthritis, left hip Category: Medical Plan: Blood pressure is markedly elevated. Lisinopril has been increased to 20 mg once a day and hydrochlorothiazide has been added to the regimen. Patient is cleared for surgery. BW revd. Post op care including DVT prophylaxis will be per the ortho provider. Orders: Orders AMB EKG-In Office Today I10 - Essential (primary) hypertension, R07.9 - Chest pain, unspecified Medications: Changed From lisinopril 10 mg (1/2 x 20 mg) PO DAILY 90 tabs 1RF To lisinopril 20 mg PO DAILY 90 tabs 1RF
--- OUTSIDE RECORDS SUMMARY | 2025-04-15 11:44 | XMS_ITS ---
Author Name [facility] Organization Unknown History of Medication Use Medication Directions Dispensed Refills Start Date End Date Stat us meloxicam 15 mg tablet Take 1 tablet every day by oral route as needed. 04/04/2025 active meloxicam 15 mg tablet active atorvastatin 10 mg tablet TAKE 1 TABLET BY MOUTH EVERY DAY active levothyroxine 125 mcg tablet TAKE 1 TABLET IN THE MORNING ON AN EMPTY STOMACH, 6 DAYS A WEEK ORALLY ONCE A DAY 90 DAYS active lisinopril 10 mg tablet TAKE 1 TABLET BY MOUTH EVERY DAY FOR 90 DAYS active lisinopril 20 mg tablet TAKE 1/2 TABLET (10MG) ONCE DAILY active Problems Problem Status Onset Date Problem Type Date of Resolution Source Unilateral primary osteoarthritis, left hip active EncounterDiagnosisAct [facility] Osteoarthritis of left hip joint active 2025-04-04 ProblemAct [facility] Arthritis of hip active 2025-04-04 ProblemAct E NS_[facility] Encounters Encounter Type Encounter Reason Primary Diagnosis Location Date Ambulatory [facility] 04/07/2025 [facility] 04/04/2025 [facility] 04/04/2025 [facility] 04/04/2025 [facility] 04/04/2025 [facility] 04/03/2025 [facility] 03/13/2025 Amb[facility] 03/12/2025 Amb[facility] 03/12/2025 Care Team Organization Name Specialty Phone Email Start Date End Da delphine [facility] IGOR ALVARES [facility] 04/11/2025 [facility] 04[facility]10/2025 [facility] 04/10/2025
== END 2025-04-15 11:45 | disposition home or self-care (01) ==
LOC: HO.HMCSH 10:33
PROVIDERS: PCP Internal Medicine; Visit Provider Internal Medicine
DX: I10 Essential (primary) hypertension (principal); M16.12 Unilateral primary osteoarthritis, left hip

== ENCOUNTER 2025-07-29 13:48 | Outpatient (AMB) | payer MEDICARE, SELFPAY ==
--- NOTE | 2025-07-29 14:21 | A.OFFPC_ITS ---
Vital Signs 07/29/25 14:22 Height 5 ft 4 in Weight 156 lb BMI 26.8 BP 146/82 H Respiration 14 Pulse 77 Pulse Source Pulse Oximeter Temp 97.8 F Temp Source Temporal Artery Scan Pulse Oximetry (%) 98 Oxygen Delivery Method Room Air Intake Visit Reasons: 6 month follow up - see comments Bank Secrecy Act Officer Required: No Accompanied by: Self / Same As Patient Allergies No Known Allergies Allergy (Verified 07/29/25 14:22) Tobacco use date assessed: 04/15/25 Dental Screening Dental Screen Date: 01/21/25 [facility] Medical History Essential hypertension Osteoarthritis of left hip Osteoarthritis of right shoulder Hypothyroidism Family History Father Heart problem Mother Heart problem Brother Diabetes Heart problem Social History Housing: House Alcohol intake: current Alcohol intake frequency: holidays/special occasions only Patient Tobacco Use Status: Never used Tobacco service: No Current occupational status: retired Cognitive needs: No Hearing needs: No Vision needs: Yes (rx glasses) Questionnaire PHQ-9 Over the last 2 weeks, how often have you been bothered by any of the following problems? 1. Little interest or pleasure in doing things: not at all 2. Feeling down, depressed, or hopeless: not at all 3. Trouble falling or staying asleep, or sleeping too much: not at all 4. Feeling tired or having little energy: not at all 5. Poor appetite or overeating: not at all 6. Feeling bad about yourself - or that you are a failure or have let yourself or your family down: not at all 7. Trouble concentrating on things, such as reading the newspaper or watching television: not at all 8. Moving or speaking so slowly that other people could have noticed. Or the opposite - being so fidgety or restless that you have been moving around a lot more than usual: not at all 9. Thoughts that you would be better off or of hurting yourself in some way: not at all Total score: 0 Source: Developed by Drs. Bert Choi, Alejandra B.Nirav Mccauley and colleagues, with an educational maksim from [employer] ([employer] Thrive Questionnaire Date Thrive assessed: 07/29/25 I am a: Patient What is your living situation today?: I have a steady place to live Within the past 12 months, did the food you bought not last and you didn't have the money to get more?: Never true Within the past 12 months, did you worry whether your food would run out before you got money to buy more?: Never true Do you have trouble paying for medicines?: No Do you have trouble getting transportation to medical appointments?: No Do you have trouble paying your heating and electricity bill?: No Do you have trouble taking care of your child, family member or friend?: No Do you have trouble with day-to-day activities such as bathing, preparing meals, shopping, managing finances, etc.?: No Are you currently unemployed and looking for a job?: No Are you interested in more education?: No Please select the resources that you would like help with: None THRIVE Score: 0 AUDIT C Alcohol Use Questionnaire (AUDIT-C) 1. How often do you have a drink containing alcohol?: Monthly or less 2. How many drinks containing alcohol do you have on a typical day when you are drinking?: 1 or 2 3. How often do you have six or more drinks on one occasion?: Never Total Score: 1 YORDY-7 AMB Questionnaire YORDY-7 Date YORDY - 7 assessed: 01/21/25 Feeling nervous, anxious, or on edge: 0 = Not at all Not being able to stop or control worryin = Not at all Worrying too much about different things: 0 = Not at all Trouble relaxin = Not at all Being so restless that it is hard to sit still: 0 = Not at all Becoming easily annoyed or irritable: 0 = Not at all Feeling afraid as if something awful might happen: 0 = Not at all Total YORDY-7 score (0-4 normal; 5-9 mild; 10-14 moderate; 15-21 severe): 0 Source: Developed by Drs. Bert Choi, Nirav Perrin and colleagues, with an educational maksim from [employer] ([employer]). Physical exam (Primary Care) Vital Signs: Last Vital Signs Temp 97.8 F 07/29/25 14:22 Pulse 77 07/29/25 14:22 Resp 14 07/29/25 14:22 BP 146/82 H 07/29/25 14:22 Pulse Ox 98 07/29/25 14:22 Oxygen Delivery Method Room Air 07/29/25 14:22 BMI result Body Mass Index 26.8 Tobacco/Smoking Status: Tobacco use Status Tobacco use date assessed 04/15/25 07/29/25 14:29 Patient Tobacco Use Status Never used Tobacco 07/29/25 14:29 PHQ-9: PHQ-9 Score PHQ-9: Total score 0 07/29/25 14:29 Thrive Assessment: Date of Thrive Assessment Date Thrive assessed 07/29/25 07/29/25 14:29 Office Procedures Flu Questionnaire Does the patient have a severe egg allergy?: No Does the patient have severe life threatening allergies?: No Does the patient have a fever or illness today?: No Has the patient ever had Guillain-M[place] Syndrome?: No Has the patient ever had any past reaction to a flu shot?: No Immunizations Fluarix [id number] (PF) 45 mcg (15 mcg x 3)/0.5 mL IM syringe Performing Provider: Keith Vanegas MD [facility] Documented (not given) by: AG Knight on 07/29/25 14:29 Reason Not Given: Patient Refused Coding Level of Care Code Est Pt Level 4 (47649) Complex EM visit Add On G2211 Diagnoses Essential hypertension I10 Assessment & Plan Assessment & Plan (1) Essential hypertension: Code(s): I10 - Essential (primary) hypertension Category: Medical Plan: Was encouraged to restart HCTZ. Plan History of Present Illness - The patient is a 69-year-old female presenting with hypertension management and preventative care review. - Essential Hypertension: Previously elevated blood pressure led to an increase in lisinopril and hydrochlorothiazide. The patient discontinued hydrocodone, preferring fewer medications, with current blood pressure at 140 mmHg. - Hypothyroidism: Managed with levothyroxine 125 mcg, taken six times weekly, with stable thyroid function as per April blood work. - Preventative Care: Mammogram completed this year at the [facility]; colon cancer screening planned with a stool test kit. Social History Review of Systems - Cardiovascular: Denies chest pain, reports blood pressure management. - Endocrine: Reports adherence to thyroid medication regimen. - Gastrointestinal: Denies abdominal pain. - Musculoskeletal: Reports resolution of hip pain. - Neurological: Denies hearing loss, reports good vision and hearing. Physical Exam General: Cooperative and healthy appearing Nutritional Appearance: Well nourished Orientation/consciousness: Patient oriented x3 Limitations: No limitations Head: Normal to inspection General: Appearance normal, both eyes and all related structures Neck: Normal visual inspection Chest: Normal palpation of entire chest wall Respiratory: N ormal respiratory effort Neurology: Patient oriented x3, Vision is good, Hearing is good Results - Labs: Blood work in April showed stable thyroid function. - Imaging: Mammogram completed this year at the [facility]. Plan - Continue antihypertensive regimen with lisinopril and hydrochlorothiazide, monitor blood pressure. - Refill antihypertensive medications as needed. - Maintain levothyroxine 125 mcg regimen. - Schedule colon cancer screening with stool test kit. - Follow up in six months for evaluation and blood work. Discussion Notes During the visit, we discussed the importance of maintaining blood pressure control and adherence to the current antihypertensive regimen. I advised the patient to continue her thyroid medication as prescribed and to schedule a colon cancer screening using a stool test kit. We also reviewed her recent mammogram results, which were satisfactory. The patient was informed about the need for a follow-up visit in six months to reassess her condition and perform routine blood work. Patient Instructions - Continue taking lisinopril and hydrochlorothiazide as prescribed. - Refill your blood pressure medication if needed. - Keep taking your thyroid medication as directed. - Complete the colon cancer screening with the stool test kit. - Schedule your next appointment in six months for a check-up and blood work. Orders: Orders Influenza [id number] Immunization Today Z23 - Encounter for immunization Referrals Cologuard Test Z12.11 - Encounter for screening for malignant neoplasm of colon Medications: Refilled hydrochlorothiazide 25 mg PO DAILY 90 tabs 1RF
[2025-07-29 14:22] VITALS: BP 146/82; PULSE 77; RESP 14; TEMP 36.6; O2SAT 98; BMI 26.8
--- OUTSIDE RECORDS SUMMARY | 2025-07-29 16:47 | XMS_ITS | Clinical Summary ---
Author Organization [facility] Address [address] [place] [id number] Phone Care Team Providers Care Aircraft Electronics Technical Officer Name Role Phone Keith Vanegas MD Primary Care Provider [phone] Allergies Active Allergy Reactions Criticality Noted Date Comments Cortisone Other 04/11/2025 Red faced and itchy in shoulder Medications atorvastatin (LIPITOR) 10 mg tablet Take 1 tablet (10 mg total) by mouth 1 (one) time each day. 03/28/2025 Active levothyroxine (SYNTHROID, LEVOTHROID) 125 mcg tablet Take 1 tablet (125 mcg total) by mouth 1 (one) time each day before breakfast. 06/07/2024 Active lisinopriL (PRINIVIL,ZESTRI L) 20 mg tablet Take 1 tablet (20 mg total) by mouth 1 (one) time each day. 02/12/2025 Active multivitamin with minerals tablet Take 1 tablet by mouth 1 (one) time each day. Active hydroCHLOROthiaz jaya (HYDRODIURIL) 25 mg tablet Take 1 tablet (25 mg total) by mouth 1 (one) time each day. Active methocarbamoL (ROBAXIN) 750 mg tablet Take 1 tablet (750 mg total) by mouth every 6 (six) hours if needed for muscle spasms for up to 14 days. 40 tablet 04/21/2025 1:12 PM EDT 04/21/2025 Active Surgical History Surgery Date Site/Laterality Comments COLONOSCOPY Medical History Medical History Date Comments Delayed emergence from general anesthesia Hypertension Hyperlipidemia Hypothyroidism Arthritis Family History Medical History Relation Name Comments Diabetes Brother Heart disease Brother Heart disease Father Hypertension Father Stroke Father Heart disease Mother Hypertension Mother Relation Name Status Comments Brother Father Mother Social History Tobacco Use Types Packs/Day Years Used Date Smoking Tobacco: Never Smokeless Tobacco: Never Tobacco Cessation:Counseling Given: Not Answered Alcohol Use Standard Drinks/Week Comments Not Currently 0 (1 standard drink = 0.6 oz pur e alcohol) rare Interpersonal Safety Answer Date Record ed Physical Abuse Unrecognized value 04/21/2025 Verbal Abuse Unrecognized value 04/21/2025 Comments No Sex and Gender Information Value Date Recorded Sex Assigned at Female 04/14/2025 8:28 AM EDT Legal Sex Female 10:56 AM EDT Gender Identity Not on file Sexual Orientation Not on file Obstetrics History Last Filed Vital Signs Vital Sign Reading Time Taken Comments Blood Pressure 151/67 04/21/2025 12:00 PM EDT Pulse 62 04/21/2025 10:15 AM EDT Temperature 36.1 C (97 F) 04/21/2025 10:30 AM EDT Respiratory Rate 16 04/21/2025 10:15 AM EDT Oxygen Saturation 99% 04/21/2025 10:30 AM EDT Inhaled Oxygen Concentration - - Weight 72.6 kg (160 lb) 04/21/2025 5:45 AM EDT Height 162.6 cm (5' 4 ) 04/21/2025 5:45 AM EDT Body Mass Index 27.46 04/21/2025 5:45 AM EDT Plan of Treatment Health Maintenance Due Date Last Done Comments Breast Cancer Screening 1955 Colorectal Cancer Screening: Colonoscopy 1955 Zoster Vaccines (1 of 2) 2003 Pneumococcal Vaccine: 50+ Years (2 of 2 - PCV) 09/12/2014 09/12/2013 DTaP,Tdap,and Td Vaccines (3 - Td or Tdap) 03/01/2023 03/01/2013, 10/13/2002 Depression Screening 10/16/2024 Cholesterol Screening (Lipid Panel) 04/11/2025 Hepatitis C Screening 04/11/2025 Medicare Annual Wellness Visit 04/11/2025 Osteoporosis Screening (Bone Density Screening) 04/11/2025 Social Influencers of Health Screening 04/11/2025 COVID-19 Vaccine (1 - 2023-2 5 season) 2025 Influenza Vaccine (#1) 2025 3, 08/25/2011, 08/17/2010 Falls Risk Assessment 04/21/2026 04/21/2025 RSV Immunization Adult Patients (1 - 1-dose 75+ series) 2028 HIB Vaccines Aged Out No longer eligi ble based on patient's age to complete this topic HPV Vaccines Aged Out No longer eligi ble based on patient's age to complete this topic Hepatitis A Vaccines Aged Out No long er eligible based on patient's age to complete this topic Hepatitis B Vaccines Aged Out No long er eligible based on patient's age to complete this topic IPV Vaccines Aged Out No longer eligi ble based on patient's age to complete this topic MMR Vaccines Aged Out No longer eligi ble based on patient's age to complete this topic Meningococcal ACWY Vaccine Aged Out N o longer eligible based on patient's age to complete this topic Meningococcal B Vaccine Aged Out No l onger eligible based on patient's age to complete this topic RSV Immunization Patients Under 20 months Aged Out No longer eligible b ased on patient's age to complete this topic Varicella Vaccines Aged Out No longer eligible based on patient's age to complete this topic Medical Devices Implanted Type Area Book Illustrator Device Identifier Shelf Expiration Date Model / Serial / Lot Lp Hex Screw 6.5x25mm - [id number] Implanted:Qty : 1 on 04/21/2025 by Alvin Hubbard MD at [facility] Hip Left: Hip [employer] [id number] 01/16/2030 [id number] / / [id number] Liner Trident X3 0 Deg 36mm 3.9mm Sz D - [id number] Implanted:Qty : 1 on 04/21/2025 by Alvin Hubbard MD at [facility] Hip Left: Hip [employer] [id number] 01/09/2030 723-00-36 D / / [id number] Tritanium Cluster Hole Shell 50mm - [id number] Implanted:Qty : 1 on 04/21/2025 by Alvin Hubbard MD at [facility] Hip Left: Hip [employer] [id number] 12/22/2029 702-04-50 D / / [id number] Lp Hex Screw 6.5x20mm - [id number] Implanted:Qty : 1 on 04/21/2025 by Alvin Hubbard MD at [facility] Hip Left: Hip [employer] [id number] 01/28/2030 [id number] / / MAG Hip Stem Collared High Sz 3 - [id number] Implanted:Qty : 1 on 04/21/2025 by Alvin Hubbard MD at [facility] Hip Left: Hip [employer] [id number] 02/25/2030 [id number] / / [id number] Head Femoral 36mm -5mm Offset [employer] Delta Ceramic Hip Strl - [id number] Implanted:Qty : 1 on 04/21/2025 by Alvin Hubbard MD at [facility] Hip Left: Hip [employer] [id number] 11/16/2029 6570-0-03 6 / / [id number] Insurance [employer] Advance Directives * Full Code - Confirmed (Latest Code Status on File) Date Activated Date Inactivated Comments 04/21/2025 8:30 AM 04/21/2025 4:29 PM This code stat us was ascertained in the following way: Code status discussion: discussion with patient To update the patient's code status, place a code status order. Do not modify or discontinue any currently active code status orders. Care Teams Aircraft Electronics Technical Officer Relationship Specialty Start Date End Date Keith Vanegas MD [facility] [address] [place] [address] PCP - General Internal Medicine 04/11/25
== END 2025-07-29 14:54 | disposition home or self-care (01) ==
LOC: HO.HMCSH 13:48
PROVIDERS: PCP Internal Medicine; Visit Provider Internal Medicine
DX: I10 Essential (primary) hypertension (principal); Z23 Encounter for immunization

== ENCOUNTER → 2025-07-29 13:48 | Outpatient (BNVA) | payer MEDICARE, SELFPAY | PROVIDERS: PCP Internal Medicine; Visit Provider Internal Medicine | DX: I10 Essential (primary) hypertension (principal); E03.9 Hypothyroidism, unspecified; Z28.21 Immunization not carried out because of patient refusal | CPT/HCPCS: 90471; 96127; 99212 ==